=== PATIENT | female | born 1980 | race Caucasian/White ===

== ENCOUNTER 2019-12-23 11:05 | Day surgery (SDC) | payer OTHER ==
[~2019-12-23] VITALS: Ht 165.1 cm; Wt 185.9 kg
[~2019-12-23 11:05] MED LIST: NOCURR
[2019-12-23] MEDS ORDERED: PROPOFOL 1% 20 ML VIAL IVP ONE (11:06)
[2019-12-23] MEDS ORDERED: LIDOCAINE/PF 2% 5 ML SYRINGE IVP ONE (11:06)
[2019-12-23] MEDS ORDERED: SODIUM CHLORIDE 0.9% 1,000 ML ONE (11:11)
[2019-12-23] MEDS ORDERED: AMLO10TA7 PO (11:56)
[2019-12-23] MEDS ORDERED: LOSA50TA64 PO (11:56)
[2019-12-23] MEDS ORDERED: SODIUM CHLORIDE 0.9% 1,000 ML IV ONE (12:00)
== END 2019-12-23 14:45 | disposition home or self-care (01) ==
LOC: SURGERY 11:05
PROVIDERS: ATTEND Student in an Organized Health Care Education/Training Program
DX: K63.5 Polyp of colon (principal); I10 Essential (primary) hypertension; K21.9 Gastro-esophageal reflux disease without esophagitis; M19.90 Unspecified osteoarthritis, unspecified site; Z79.899 Other long term (current) drug therapy
CPT/HCPCS: 45385; 45380; 45381; 84703; 88305; C1769; J2704; J3490; J7030